=== PATIENT | female | born 1940 | race Caucasian/White ===

== ENCOUNTER 2020-09-17 13:11 | Inpatient (IN) | payer OTHER, MEDICAID, SELFPAY ==
[~2020-09-17] VITALS: Ht 152.4 cm; Wt 60.8 kg
[2020-09-17 13:11] VITALS: BP_SYST 113
--- NOTE | 2020-09-17 13:11 | NUR ---
Patient to ER bed 2 to gown for evaluation. Side rails up.
--- NOTE | 2020-09-17 13:20 | NUR ---
Patient presented to ER C/O hypotesion. Patient BIB ACLS to ER, A&Ox4, afebrile, right eye drainage, skin pink and warm, abdominal distension,denies pain , denies N/V/D. Per EMS, called for abdominal pain, on presentation PT was hypotensive. PT has HX of ascites & A-fib, liver cirrhosis.
--- NOTE | 2020-09-17 13:35 | NUR ---
ER Dr. Wheatley at bedside examining patient.
[2020-09-17] MEDS ORDERED: AMI200 PO (13:52)
[2020-09-17] MEDS ORDERED: NEPH PO (13:52)
[2020-09-17] MEDS ORDERED: BUDE6HFA INH (13:52)
[2020-09-17] MEDS ORDERED: OMEP20CA15 PO (13:52)
[2020-09-17] MEDS ORDERED: FOLI-43 PO (13:52)
[2020-09-17] MEDS ORDERED: MOM PO (13:52)
[2020-09-17] MEDS ORDERED: LEVA15HF5 INH (13:52)
[2020-09-17] MEDS ORDERED: ASCO500T20 PO (13:52)
[2020-09-17] MEDS ORDERED: CYAN100010 PO (13:52)
[2020-09-17] MEDS ORDERED: TIZA6CAP PO (13:52)
[2020-09-17] MEDS ORDERED: ACET325T PO (13:52)
[2020-09-17] MEDS ORDERED: DOCU-144 PO (13:52)
[2020-09-17] MEDS ORDERED: BISA-79 PO (13:52)
[2020-09-17] MEDS ORDERED: LEVO750T45 PO (13:52)
[2020-09-17] MEDS ORDERED: METO-442 PO (13:52)
[2020-09-17] MEDS ORDERED: DILT120C89 PO (13:52)
[2020-09-17 14:08] LABS: BASOPHILS # (AUTO) 0.1 K/uL (0.0-0.2); BASOPHILS % (AUTO) 0.8 % (0.0-2.0); EOSINOPHILS % (AUTO) 0.1 % (0.0-4.0); HEMATOCRIT 24.4 % (36-48); HEMOGLOBIN 7.9 g/dL (12.0-16.0); LYMPHOCYTES # (AUTO) 1.5 K/uL (1.0-5.5); LYMPHOCYTES % (AUTO) 14.1 % (20.5-51.5); MEAN CORPUSCULAR HEMOGLOBIN 28 pg (27-31); MEAN CORPUSCULAR HGB CONC 32 % (32-36); MEAN CORPUSCULAR VOLUME 87 fL (79.0-98.0); MONOCYTES # (AUTO) 0.8 K/uL (0.0-1.0); MONOCYTES % (AUTO) 7.4 % (1.7-9.3); NEUTROPHILS # (AUTO) 8.2 K/uL (1.8-7.7); NEUTROPHILS % (AUTO) 77.6 % (40.0-70.0); PLATELET COUNT (AUTO) 415 K/uL (130-430); RED CELL DISTRIBUTION WIDTH 15.5 % (9.0-15.0); WHITE BLOOD COUNT (AUTO) 10.6 K/uL (4.8-10.8)
--- NOTE | 2020-09-17 14:15 | NUR ---
# 16 FR In and Out catheter with use of sterile technique. Immediate return of ml urine noted. Urine sample collected and sent to lab. Pt tolerated procedure . Patient unable to toilet self.
[2020-09-17 14:23] LABS: ANION GAP 6 (5-15); CALCIUM 8.3 mg/dL (8.4-11.0); CHLORIDE 100 mmol/L (98-107); CREATININE 0.95 mg/dL (0.55-1.30); GLUCOSE 87 mg/dL (70-99); POTASSIUM 3.9 mmol/L (3.5-5.1); SODIUM SERUM 131 mmol/L (136-145); UREA NITROGEN, BLOOD 19 mg/dL (8-21)
--- NOTE | 2020-09-17 14:30 | NUR ---
Medication reconciliation completed with information provided by Referring Facility[]. Any prior medication reconciliation on file was reviewed and corrected.
[2020-09-17 14:34] LABS: INR 1.2 (0.8-1.2); PROTHROMBIN TIME 12.5 SECS (9.5-12.5)
[2020-09-17 14:41] LABS: ALANINE AMINOTRANSFERASE 8 U/L (12-78); ALBUMIN 2.1 g/dL (3.4-4.8); ASPARTATE AMINOTRANSFERASE 31 U/L (10-37); TOTAL BILIRUBIN 0.3 mg/dL (0.0-1.0)
[2020-09-17 14:47] LABS: BILIRUBIN,URINE NEGATIVE (NEGATIVE); BLOOD, URINE NEGATIVE (NEGATIVE); CLARITY/URINE CLEAR (CLEAR); COLOR,URINE YELLOW (YELLOW); GLUCOSE,URINE NEGATIVE (NEGATIVE); KETONES,URINE NEGATIVE (NEGATIVE); LEUKOCYTE ESTERASE ,URINE NEGATIVE (NEGATIVE); NITRITE, URINE POSITIVE (NEGATIVE); PH,URINE 5.5 (5.0-8.0); PROTEIN URINE NEGATIVE (NEGATIVE); UROBILINOGEN,URINE 0.2 (0.2-1.0)
[2020-09-17 15:09] LABS: BACTERIA,URINE MANY /HPF (None Seen); RBC,URINE 0-3 /HPF (0-3); WBC,URINE 0-3 /HPF (0-3)
--- NOTE | 2020-09-17 15:55 | NUR ---
ER at bedside examining patient.
--- NOTE | 2020-09-17 16:20 | NUR ---
Admit orders received from Dr. Martin, pt will go to tele. Called for bed, tt charge nurse, Manuel. Pt will go to 105B.
--- NOTE | 2020-09-17 16:35 | NUR ---
Patient will be admitted to care of DR LEE. Admitted to TELE unit. Will go to room 105B . Belongings list completed. Complete and up to date summary report printed. SBAR report to be given at bedside with opportunity for questions. Transfer to TELE via ACLS protocol. Licensed nurse present. IV present no signs or symptoms of infiltration.
--- NOTE | 2020-09-17 16:43 | NUR ---
Admission Note Received patient from ER with diagnosis of OVARIAN CA/ASCITES. Initial Plan of Care discussed-patient verbalized understanding. . Oriented to room, call light, pain management and safety.
[2020-09-17 16:53] VITALS: BP_SYST 93
[2020-09-17 17:00] VITALS: BP_SYST 86
--- NOTE | 2020-09-17 17:00 | NUR ---
Opening Note/Spoke with Physician patient brought to room 105A by BAR SUPERVISOR on media monitor, received bedside SBAR report from endorsing RN, patient placed on tele monitor, patient placed on 2L nasal cannula, no acute distress noted, patient is alert and oriented x4, spoke with Dr. Martin, informed him that patients current BP 86/58, HR 129, new orders received for fluid bolus, verified with read back, IV fluid infusing well, no redness or swelling noted to IV site, patient denies any dizziness, educated patient on use of call light and asked to call for assistance, patient verbalized understanding, call light in reach, bed in low and locked position, bed alarm on, room close to nurses station.
[2020-09-17] MEDS ORDERED: IPRATROPIUM BROM 0.5 MG/2.5 ML VIAL.NEB (ATROVENT) INH PRN (17:15)
[2020-09-17] MEDS ORDERED: ALBUTEROL SULFATE 0.083% 2.5 MG/3 ML VIAL.NEB INH PRN (17:15)
[2020-09-17] MEDS ORDERED: NACL 0.9% 1,000 ML IV ONE ×2 (17:15→22:15)
--- NOTE | 2020-09-17 17:15 | NUR ---
Snack patient requesting jello snack, provided patient with jello snack, patient eats independently, no acute distress noted.
[2020-09-17 17:50] VITALS: BP_SYST 103
--- NOTE | 2020-09-17 18:35 | NUR ---
to CT patient taken to CT on 2L nasal cannula and shake backboard notcher, accompanied by health records technology teacher and Michelle GARSIA.
--- NOTE | 2020-09-17 19:01 | NUR ---
back from CT patient brought back to room from CT scan via gurney, patient was on property assessment monitor and 2L nasal cannula and was accompanied by RN, patient resting in bed, respirations even and unlabored, no acute distress noted, bed in low and locked position, bed alarm on, call light in reach.
--- NOTE | 2020-09-17 19:04 | NUR ---
Closing Note bedside SBAR report given to receiving RN, patient resting in bed, respirations even and unlabored on 2L nasal cannula, no acute distress noted, room close to nurses station, educated patient on use of call light and asked to call for assistance, patient verbalized understanding, call light in reach, bed in low and locked position, bed alarm on, care endorsed to night time nanny RN.
[2020-09-17 19:30] VITALS: BP_SYST 83
--- NOTE | 2020-09-17 19:34 | NUR ---
Initial note: Received report from tati RN. Patient is awake in bed. No acute distress. Even and unlabored breathing on 2L NC. IV site is saline locked, patent and benign. Call light is with patient. Safety, fall precautions in place. Will continue with plan of care.
[2020-09-17] MEDS: IPRATROPIUM BROM 0.5 MG/2.5 ML VIAL.NEB (ATROVENT) INH SCH (20:14)
[2020-09-17] MEDS: ALBUTEROL SULFATE 0.083% 2.5 MG/3 ML VIAL.NEB INH SCH (20:14)
--- NOTE | 2020-09-17 20:28 | NUR ---
Low BP: Patient's SBP consistently in the 70's and 80's on both arms. Heart rate in the 120's, rhythm on the monitor switches between A-fib and sinus tachycardia. Patient denies dizziness or chest pain. Will notify MD of patient's condition.
--- NOTE | 2020-09-17 20:31 | NUR ---
Paged Dr. Martin (Dr. Elder, A copper flotation operator) for orders.
[2020-09-17 20:32] VITALS: BP_SYST 83
--- NOTE | 2020-09-17 20:59 | NUR ---
2nd page for Marisela Gee for orders for the patient.
--- NOTE | 2020-09-17 21:36 | NUR ---
3rd page for Marisela Gee for orders for the patient.
--- NOTE | 2020-09-17 22:03 | NUR ---
Dr. Marisela Elder: Dr. Marisela Elder called back at this time, spoke with him over phone to inform him regarding patient's SBP in the 70's and 80's and heart rate in the 120's with rhythm occasionally switching between sinus tachycardia and A-fib. Reported to MD patient's history and current status. New IV fluid orders and consultation orders received. Med rec done over phone with MD. Verified by read-back, RN to input.
--- NOTE | 2020-09-17 22:25 | NUR ---
SPOKE TO [facility] REGARDING PT FLU VACCINE STATUS ACCORDING TO THE [facility], THEY STATED THAT PT REFUSED FLU AND PNEUMOCOCCAL VACCINE.
[2020-09-17] MEDS ORDERED: MILK OF MAGNESIA 30 ML UDC PO PRN (22:30)
[2020-09-17] MEDS ORDERED: ACETAMINOPHEN 325 MG TABLET PO PRN (22:30)
--- NOTE | 2020-09-17 22:33 | NUR ---
CONSULTATION PAGED/CALLED Reason for Consultation: ASCITES Person Who was Notified: KRISS Consulting Physician: LUIS ENRIQUE Digital Traffic Coordinator Specialty: Ordering Physician: Marisela LAMBERT
--- NOTE | 2020-09-17 22:33 | NUR ---
CONSULTATION PAGED/CALLED Reason for Consultation: OVARIAC CANCER Person Who was Notified: GILBERT Consulting Physician: KATARINA Machine Heel Seat Fitter Specialty: Ordering Physician: Marisela LAMBERT
--- NOTE | 2020-09-17 22:34 | NUR ---
CONSULTATION PAGED/CALLED Reason for Consultation: UNCON. A FIB Person Who was Notified: GILBERT Consulting Physician: MALGORZATA Transformer Inspector Specialty: Ordering Physician: Mairsela LAMBERT
[2020-09-17] MEDS: D5/0.45 NS 1,000 ML IV SCH (23:06)
--- NOTE | 2020-09-17 23:25 | NUR ---
Dr. Marisela Elder: called back, reported to him patient's BP of 93/52 after 1 L NS bolus. MD ordered to continue monitoring.
[2020-09-18] VITALS: BP_SYST 93
--- NOTE | 2020-09-18 01:33 | NUR ---
Rounds: Patient is resting comfortably in bed. No acute distress. Breathing is even and unlabored on 2 L NC. IV fluids infusing well. Call light is with patient. Will continue to monitor.
[2020-09-18 04:24] VITALS: BP_SYST 128
--- NOTE | 2020-09-18 04:32 | NUR ---
Rounds: Patient is asleep in bed, no acute distress. Even and unlabored breathing. Tolerating 2L NC. IV fluids infusing as ordered, no infiltration. BP taken at this time is 128/56. Call light is with patient. Will continue to monitor.
--- NOTE | 2020-09-18 06:34 | NUR ---
Closing note: Patient is resting in bed, no acute distress. Even and unlabored breathing on 2L NC. IV fluids infusing well to right wrist IV site. All needs met. Safety, fall precautions observed. Will endorse care to dayshift RN.
--- NOTE | 2020-09-18 06:45 | NUR ---
Flu vaccination status: Patient was asked at this time if she wanted flu shot, however she is unsure if she's received it. Patient's daughter Reyna per face sheet was contacted over the phone by charge nurse. Per charge nurse, Reyna is unsure whether flu shot has been given, though may have been given during a visit at patient's primary doctor's office. Reyna will follow up with the doctor's office once they are open.
[2020-09-18] MEDS: ALBUTEROL SULFATE 0.083% 2.5 MG/3 ML VIAL.NEB INH SCH ×4 (07:10→20:34)
[2020-09-18] MEDS: IPRATROPIUM BROM 0.5 MG/2.5 ML VIAL.NEB (ATROVENT) INH SCH ×4 (07:11→20:34)
--- NOTE | 2020-09-18 07:12 | NUR ---
Dr. Martin: Received a phone call at this time from Dr. Martin, who ordered to cancel the consults for Dr. Ritter, Dr. Marcos, and Dr. Schwartz. Order verified by read-back. This information was relayed to dat Dorsey, who will call and notify the exchanges of each physician whose consults were canceled.
--- NOTE | 2020-09-18 07:20 | NUR ---
Opening Note patient alert and awake, no signs of distress noted, patient on nasal cannula oxygen 2 liters, bed locked and at low position, call light within reach, fall and aspiration precautions put in place.
[2020-09-18 08:20] VITALS: BP_SYST 70
[2020-09-18] MEDS: D5/0.45 NS 1,000 ML IV SCH ×2 (08:36→21:23)
[2020-09-18] MEDS: levoFLOXacin 250 MG TABLET PO SCH (08:36)
[2020-09-18] MEDS: BISACODYL 5 MG TABLET.DR (DULCOLAX) PO SCH (08:37)
[2020-09-18] MEDS: DOCUSATE SODIUM 100 MG CAPSULE PO SCH ×2 (08:38→21:23)
[2020-09-18] MEDS: PANTOPRAZOLE SODIUM 40 MG TAB PO SCH (08:38)
[2020-09-18] MEDS: NEPHROVITE, (FOLIC ACID/VITAMIN B COMP W-C 1 TAB) PO SCH (08:38)
[2020-09-18] MEDS: ASCORBIC ACID 500 MG TABLET PO SCH (08:39)
[2020-09-18] MEDS: CYANOCOBALAMIN 1000 mCg TABLET PO SCH (08:39)
--- NOTE | 2020-09-18 08:47 | NUR ---
MOLD YARD CRANE OPERATOR, DR MCGARRY WAS CALLED RE: LOW BP 70/50. SPOKE TO JOSE DAVID.
[2020-09-18] MEDS ORDERED: FOLIC ACID 1 MG TABLET PO SCH (09:00)
[2020-09-18] MEDS ORDERED: NS 250 ML IV ONE ×2 (09:00)
[2020-09-18] MEDS ORDERED: OMEPRAZOLE Non-Formulary 20 MG CAPSULE.DR PO SCH (09:00)
--- NOTE | 2020-09-18 09:00 | NUR ---
NEUROSURGEON CONSULT DR COLLINS WAS CALLED ON HIS CELL RE: F/U CONSULT NOT SEEN FOR 4 DAYS. LEFT A VOICE MESSAGE. Addendum: 09/18/20 at 0910 by Sunita Esparza [place]/ WRONG PT.
--- NOTE | 2020-09-18 09:06 | NUR ---
Nutrition Update Sarbjit Scale 17 noted. Pt admitted for ovarian CA, ascites. Diet: full liquid BMI: 26.4 kg/m2 RD to follow per nutrition care standards.
[2020-09-18 09:13] LABS: BASOPHILS % (AUTO) 0.2 % (0.0-2.0); HEMATOCRIT 22.5 % (36-48); HEMOGLOBIN 7.1 g/dL (12.0-16.0); LYMPHOCYTES # (AUTO) 1.1 K/uL (1.0-5.5); MEAN CORPUSCULAR HEMOGLOBIN 28 pg (27-31); MEAN CORPUSCULAR HGB CONC 32 % (32-36); MEAN CORPUSCULAR VOLUME 88 fL (79.0-98.0); MONOCYTES # (AUTO) 0.8 K/uL (0.0-1.0); MONOCYTES % (AUTO) 7.7 % (1.7-9.3); NEUTROPHILS % (AUTO) 81.1 % (40.0-70.0); PLATELET COUNT (AUTO) 379 K/uL (130-430); RED BLOOD CELL COUNT(AUTO) 2.55 MIL/uL (4.2-6.2); RED CELL DISTRIBUTION WIDTH 15.6 % (9.0-15.0); WHITE BLOOD COUNT (AUTO) 9.9 K/uL (4.8-10.8)
[2020-09-18] MEDS: ALBUMIN HUMAN 25% 50 ML IV SCH ×3 (09:26→17:04)
--- NOTE | 2020-09-18 09:26 | NUR ---
RN Rounds/Medication patient in bed resting, administered medication ordered per MD, patient tolerated well, no other needs at this time, safety precautions maintained.
[2020-09-18 09:32] LABS: ANION GAP 8 (5-15); CALCIUM 7.7 mg/dL (8.4-11.0); CHLORIDE 103 mmol/L (98-107); CREATININE 0.85 mg/dL (0.55-1.30); GLUCOSE 129 mg/dL (70-99); POTASSIUM 3.6 mmol/L (3.5-5.1); SODIUM SERUM 133 mmol/L (136-145); UREA NITROGEN, BLOOD 15 mg/dL (8-21)
[2020-09-18 09:46] LABS: ALANINE AMINOTRANSFERASE 13 U/L (12-78); ALBUMIN 1.7 g/dL (3.4-4.8); ASPARTATE AMINOTRANSFERASE 26 U/L (10-37); LIPASE 75 U/L (73-393); TOTAL BILIRUBIN 0.2 mg/dL (0.0-1.0)
[2020-09-18 10:23] LABS: CHOLESTEROL 105 mg/dL (<200); HDL CHOLESTEROL 34 mg/dL (>55); TRIGLYCERIDES 108 mg/dL (30-150)
[2020-09-18 10:24] LABS: LDL CHOLESTEROL 54 mg/dL (<100)
--- NOTE | 2020-09-18 10:46 | NUR ---
PER MD DR MCGARRY, I WAS ORDERED TO GET MEDICAL RECORDS FROM [facility]. SPOKE TO JEWELS FROM RELEASE OF MEDICAL INFO UNIT AND FAXED THE PT'S CONSENT.
[2020-09-18 11:26] VITALS: BP_SYST 101
--- NOTE | 2020-09-18 13:25 | NUR ---
Dietitian Recommendations * Recommend continuing full liquid diet * Encourage increase PO intakes LP, RD Please refer to Nutrition Assessment for details. Addendum: 09/18/20 at [address] Amended: Links added. Addendum: 09/18/20 at [address] CORRECTION: Dietitian Recommendations * Recommend full liquid, vegetarian diet * Encourage increase PO intakes LP, RD
--- NOTE | 2020-09-18 13:45 | NUR ---
RN Rounds patient in bed awake and no signs of distress noted, will continue to monitor patient for any changes, safety precautions maintained.
--- NOTE | 2020-09-18 15:22 | NUR ---
RN Rounds patient resting in bed, no signs of distress noted, no other needs at this time, safety measures maintained.
[2020-09-18 15:35] VITALS: BP_SYST 91
--- NOTE | 2020-09-18 17:05 | NUR ---
Pasha christianson per exchange . Spoke to software sales representative Leslie.
--- NOTE | 2020-09-18 17:39 | NUR ---
RN Rounds Dr. Burger at patient bedside.
--- NOTE | 2020-09-18 18:42 | NUR ---
Closing Note patient alert and awake, no signs of distress noted, patient on nasal cannula oxygen 2 liters, bed locked and at low position, call light within reach, contact fall and aspiration precautions maintained through out shift, patient care endorse to warehouse supervisor 3rd shift nurse.
--- NOTE | 2020-09-18 19:40 | NUR ---
Initial note: Received report from dayslouisft RN. Patient is awake in bed. No acute distress. Even and unlabored breathing on 2L NC. IV fluids infusing well, no infiltration. Call light is with patient. Safety, fall, contact iso precautions in place. Will continue with plan of care.
[2020-09-18 20:14] VITALS: BP_SYST 93
[2020-09-19] VITALS (8 sets, daily range): BP systolic 86–120
--- NOTE | 2020-09-19 00:43 | NUR ---
Rounds: Patient is resting in bed. No acute distress. Even and unlabored breathing on 2L NC. IV fluids infusing well. Call light with patient. Will continue to monitor.
--- NOTE | 2020-09-19 02:45 | NUR ---
IV RE-INSERTION: Existing IV site was leaking. Restarted on left forearm, 20 gauge. Successful after 1 attempt. Resumed current IVF of D5 1/2 NS and regulated @ 100 ML per hour. Will observe for any signs of infiltration.
--- NOTE | 2020-09-19 04:34 | NUR ---
Rounds: Patient is asleep in bed, no acute distress. Even and unlabored breathing. Tolerating 2L NC. IV fluids infusing as ordered, no infiltration. Call light is with patient. Will continue to monitor.
[2020-09-19] MEDS: D5/0.45 NS 1,000 ML IV SCH ×3 (05:23→23:40)
--- NOTE | 2020-09-19 06:43 | NUR ---
Closing note: Patient is asleep in bed. No acute distress. Even, non-labored breathing on 2LNC. IV site is patent and intact, no infiltration. All needs met. Call light is with patient. Contact iso, safety, and fall precautions observed. Will endorse care to dayshift RN.
[2020-09-19 06:49] LABS: ALANINE AMINOTRANSFERASE 7 U/L (12-78); ALBUMIN 1.9 g/dL (3.4-4.8); ANION GAP 7 (5-15); ASPARTATE AMINOTRANSFERASE 18 U/L (10-37); CALCIUM 7.5 mg/dL (8.4-11.0); CHLORIDE 103 mmol/L (98-107); GLUCOSE 117 mg/dL (70-99); POTASSIUM 3.9 mmol/L (3.5-5.1); SODIUM SERUM 132 mmol/L (136-145); TOTAL BILIRUBIN 0.2 mg/dL (0.0-1.0); UREA NITROGEN, BLOOD 11 mg/dL (8-21)
[2020-09-19] MEDS: IPRATROPIUM BROM 0.5 MG/2.5 ML VIAL.NEB (ATROVENT) INH SCH ×4 (07:14→20:04)
[2020-09-19] MEDS: ALBUTEROL SULFATE 0.083% 2.5 MG/3 ML VIAL.NEB INH SCH ×4 (07:14→20:05)
[2020-09-19 07:16] LABS: BASOPHILS % (AUTO) 0.1 % (0.0-2.0); EOSINOPHILS % (AUTO) 0.1 % (0.0-4.0); HEMOGLOBIN 7.1 g/dL (12.0-16.0); LYMPHOCYTES # (AUTO) 1.1 K/uL (1.0-5.5); LYMPHOCYTES % (AUTO) 12.7 % (20.5-51.5); MEAN CORPUSCULAR HEMOGLOBIN 28 pg (27-31); MEAN CORPUSCULAR HGB CONC 32 % (32-36); MONOCYTES # (AUTO) 0.6 K/uL (0.0-1.0); MONOCYTES % (AUTO) 7.6 % (1.7-9.3); NEUTROPHILS # (AUTO) 6.6 K/uL (1.8-7.7); NEUTROPHILS % (AUTO) 79.5 % (40.0-70.0); PLATELET COUNT (AUTO) 333 K/uL (130-430); RED BLOOD CELL COUNT(AUTO) 2.55 MIL/uL (4.2-6.2); RED CELL DISTRIBUTION WIDTH 15.9 % (9.0-15.0); WHITE BLOOD COUNT (AUTO) 8.3 K/uL (4.8-10.8)
[2020-09-19 07:34] LABS: MEAN CORPUSCULAR VOLUME 87 fL (79.0-98.0)
--- NOTE | 2020-09-19 08:00 | NUR ---
Opening note patient is a/ox4, denies pain, heart rate 140 at this time, patient had breathing treatment, on 3L via nasal cannula at this time, tolerating well, blood pressure 96/49, educated patient on plan of care and call light system, she verbalized understanding, bed in lowest position, three side rails up, bed alarm on, bed close to nursing station, fall, aspiration and isolation precautions in place.
[2020-09-19] MEDS: NEPHROVITE, (FOLIC ACID/VITAMIN B COMP W-C 1 TAB) PO SCH (08:31)
[2020-09-19] MEDS: levoFLOXacin 250 MG TABLET PO SCH (08:31)
[2020-09-19] MEDS: ASCORBIC ACID 500 MG TABLET PO SCH (08:31)
[2020-09-19] MEDS: PANTOPRAZOLE SODIUM 40 MG TAB PO SCH (08:31)
[2020-09-19] MEDS: CYANOCOBALAMIN 1000 mCg TABLET PO SCH (08:31)
[2020-09-19] MEDS: BISACODYL 5 MG TABLET.DR (DULCOLAX) PO SCH (08:32)
[2020-09-19] MEDS: DOCUSATE SODIUM 100 MG CAPSULE PO SCH ×2 (08:32→20:31)
[2020-09-19] MEDS: MUPIROCIN 2% TOPICAL OINTMENT 22 GM NS SCH ×2 (08:32→20:35)
--- NOTE | 2020-09-19 08:35 | NUR ---
Medication patient resting in bed, awake, denies pain, states she has some shortness of breath, but is doing okay so far, patient did receive breathing treatment this morning, educated patient on scheduled medications uses and potential side effects, she verbalized understanding, crushed medications and administered with applesauce, patient tolerated well, IV line is patent and infusing well, continuing to monitor patient, bed in lowest position, three side rails up, bed alarm on, bed close to nursing station, call light within reach, fall, aspiration and isolation precautions in place.
--- NOTE | 2020-09-19 09:40 | NUR ---
Dr. Herring rounds informed MD of heart rate increase this morning, Dr. Herring assessed patient, patient is not in distress, no further orders from MD at this time.
[2020-09-19] MEDS ORDERED: MIDODRINE HCL 5 MG TABLET (PROAMATINE) PO ONE (10:15)
[2020-09-19] MEDS ORDERED: METOPROLOL TARTRATE 25 MG TABLET PO ONE (10:15)
--- NOTE | 2020-09-19 10:36 | NUR ---
RN rounds/Medication patient resting in bed, awake, denies pain, no signs of distress, educated patient on new medications uses and potential side effects, she verbalized understanding and tolerated well, cleaned, turned and repositioned patient with GLOVE PAIRER, patient tolerated well, IV line is patent and infusing well, continuing to monitor, bed in lowest position, three side rails up, call light within reach, bed alarm on, bed close to nursing station, fall, aspiration and isolation precautions in place.
--- NOTE | 2020-09-19 12:24 | NUR ---
Dr. Martin rounds assessed patient and spoke with the family over the phone, discussed Hospice care with the family, orders received for Hospice evaluation with Deanne.
--- NOTE | 2020-09-19 12:30 | NUR ---
RN rounds patient resting in bed, awake, denies pain, no signs of distress, IV line is patent and infusing well, encouraging patient to eat lunch, she is trying now, aspiration precautions in place, patient is on 3L via nasal cannula, tolerating well, continuing to monitor, bed in lowest position, three side rails up, bed alarm on, bed close to nursing station, fall and isolation precautions in place.
--- NOTE | 2020-09-19 13:05 | NUR ---
SS notes: JANAY received order for Hospice Eval; faxed to [facility] (f:[phone]). Addendum: 09/19/20 at 1619 by Hetal GUSTAFSON Discharge to "home with hospice" faxed.
--- NOTE | 2020-09-19 14:26 | NUR ---
RN rounds patient resting in bed, awake, denies pain, no signs of distress, cleaned, turned and repositioned patient with CLINICAL QUALITY ASSURANCE SPECIALIST, patient tolerated well, IV line is patent and infusing well, patient is still on 3L via nasal cannula, tolerating well, continuing to monitor patient, bed in lowest position, three side rails up, bed alarm on, bed close to nursing station, fall, aspiration and isolation precautions in place.
[2020-09-19] MEDS: MIDODRINE HCL 5 MG TABLET (PROAMATINE) PO SCH ×2 (15:58→20:31)
--- NOTE | 2020-09-19 16:05 | NUR ---
RN rounds patient resting in bed, eyes closed, breathing is even and unlabored, no signs of distress, easy to wake, educated patient on scheduled medication uses and potential side effects, she verbalized understanding and tolerated well, IV line is patent and infusing well, call light placed within reach, bed in lowest position, three side rails up, bed alarm on, bed close to nursing station, fall, aspiration and isolation precautions in place.
--- NOTE | 2020-09-19 18:33 | NUR ---
Closing note patient resting in bed, eyes closed, breathing is even and unlabored, no signs of distress, IV line is patent and infusing well, all needs met, will endorse report to NOC shift nurse, bed in lowest position, three side rails up, bed alarm on, bed close to nursing station, fall, aspiration and isolation precautions in place.
--- NOTE | 2020-09-19 18:44 | NUR ---
A flutter patient had about 2.5 minutes of A Flutter, patient was not in distress, vital signs were taken, patient converted back to Sinus Tachycardia on the monitor, continuing to monitor, will endorse this episode to NOC shift nurse as well for further monitoring.
--- NOTE | 2020-09-19 19:50 | NUR ---
INITIAL NOTE AT INITIAL ASSESSMENT, PATIENT IS RESTING IN BED, STABLE, NO SIGNS OF RESPIRATORY DISTRESS. PATIENT VERBALIZES NO PAIN. PLAN OF CARE FOR THE EVENING IS COMMUNICATED WITH THE PATIENT. PATIENT DEMONSTRATES CORRECT USAGE OF CALL LIGHT AT THIS TIME. BED IS LOCKED, ALARMED, AND AT THE LOWEST LEVEL. FALL SAFETY EDUCATION PROVIDED. FALL, SAFETY, ISOLATION, ASPIRATION, AND RESPIRATORY PRECAUTIONS WILL BE TAKEN THROUGHOUT THE SHIFT.
[2020-09-19] MEDS: METOPROLOL TARTRATE 25 MG TABLET PO SCH (20:32)
--- NOTE | 2020-09-19 20:55 | NUR ---
MED PASS NOTE SCHEDULED MEDICATIONS GIVEN AT THIS TIME CRUSHED WITH APPLE SAUCE, PATIENT TOLERATED WELL. CALL LIGHT IS PLACED WITHIN REACH. BED IS LOCKED, ALARMED, AND AT THE LOWEST LEVEL.
--- NOTE | 2020-09-19 22:20 | NUR ---
HYGIENE CARE NOTE HYGIENE CARE IS PROVIDED AT THIS TIME, FRESH LINENS PROVIDED, AND PATIENT IS REPOSITIONED FOR COMFORT. PATIENT TOLERATED WELL. CALL LIGHT PLACED WITHIN REACH. BED IS LOCKED, ALARMED, AND AT THE LOWEST LEVEL.
[2020-09-20] VITALS (23 sets, daily range): BP systolic 69–105
--- NOTE | 2020-09-20 00:15 | NUR ---
LOW BLOOD PRESSURE NOTE PATIENT'S BLOOD PRESSURE FOR MIDNIGHT ASSESSMENT IS LOW (AVERAGING 74/43), WILL PAGE MD IF ATTEMPTS TO INCREASE BLOOD PRESSURE BY REPOSITIONING PATIENT IS UNSUCCESSFUL. AT THIS TIME, PATIENT IS STILL ALERT AND ORIENTED, SHE STATES SHE IS COMFORTABLE, AND IS ASYMPTOMATIC OF HYPOTENSION. SHE IS REPOSITIONED, NO SIGNS OF RESPIRATORY DISTRESS. CALL LIGHT IS WITHIN REACH. BED IS LOCKED, ALARMED, AND AT THE LOWEST LEVEL.
--- NOTE | 2020-09-20 00:40 | NUR ---
PAGED PAGED DOCTOR MCGARRY AND DOCTOR CARDENAS IS PROCUREMENT AGENT
--- NOTE | 2020-09-20 01:01 | NUR ---
2ND PAGE PAGED DOCTOR THERESA AGAIN FOR ORDERS
--- NOTE | 2020-09-20 01:06 | NUR ---
COMMUNICATION WITH DR. THERESA CARDENAS (ELECTROPHYSIOLOGY TECHNICIAN FOR DR. MCGARRY) HAS PAGED BACK AT THIS TIME- IT WAS COMMUNICATED THAT PATIENT'S BLOOD PRESSURE REMAINS AROUND 74/41 DESPITE REPOSITIONING EFFORTS. IT WAS REPORTED TO MD THAT PATIENT IS STILL ALERT AND STATES SHE IS COMFORTABLE; SHE IS NOT DISPLAYING ANY SYMPTOMS OF HYPOTENSION. MD IS ALSO MADE AWARE THAT PATIENT IS PENDING HOSPICE EVALUATION AND POSSIBLY WANTS TO BE DNR. DR. CARDENAS HAS ORDERED ONE TIME DOSE BOLUS OF 500 ML NS, AND HAS REQUESTED WE ONLY PAGE HIM AGAIN IF PATIENT'S SBP<90 ON REASSESSMENT AFTER NS BOLUS GIVEN. ORDERS READ BACK, VERIFIED, AND WILL BE GIVEN IMMEDIATELY. CHARGE NURSE AWARE.
[2020-09-20] MEDS ORDERED: NS 500 ML IV ONE ×2 (01:15→02:45)
--- NOTE | 2020-09-20 02:05 | NUR ---
PAGED PAGED DOCTOR THERESA HE TOLD US TO CALL BACK
--- NOTE | 2020-09-20 02:32 | NUR ---
COMMUNICATION WITH DR. THERESA CARDENAS (BALE OPENER FOR DR. MCGARRY) HAS PAGED BACK AT THIS TIME- IT WAS COMMUNICATED THAT PATIENT'S BLOOD PRESSURE REMAINS AROUND 74/41 DESPITE 500 ML NS BOLUS GIVEN AND REPOSITIONING EFFORTS. IT WAS REPORTED TO MD THAT PATIENT IS NOW LETHARGIC COMPARED TO BASELINE TONIGHT. DR. CARDENAS HAS ONE MORE BOLUS OF 500 ML NS, AND HAS REQUESTED WE ONLY PAGE HIM AGAIN IF PATIENT'S SBP<90 ON REASSESSMENT AFTER NS BOLUS GIVEN. ORDERS READ BACK, VERIFIED, AND WILL BE GIVEN IMMEDIATELY. CHARGE NURSE AWARE.
[2020-09-20] MEDS: ALBUTEROL SULFATE 0.083% 2.5 MG/3 ML VIAL.NEB INH SCH ×7 (02:48→23:23)
[2020-09-20] MEDS: IPRATROPIUM BROM 0.5 MG/2.5 ML VIAL.NEB (ATROVENT) INH SCH ×7 (02:48→23:23)
--- NOTE | 2020-09-20 03:42 | NUR ---
Paged Dr. Elder Flakito s/w Shira
[2020-09-20] MEDS ORDERED: NACL 0.9% 1,000 ML IV ONE ×2 (04:00→09:45)
--- NOTE | 2020-09-20 04:01 | NUR ---
COMMUNICATION WITH Benigno PRUITT DR., A. (BINDING BENCH WORKER FOR DR. LEE) HAS PAGED BACK AT THIS TIME- IT WAS COMMUNICATED THAT PATIENT'S SBP REMAINS IN THE LOW 70'S DESPITE TOTAL OF 1,000 ML NS BOLUS ORDERED BY DR. CARDENAS. IT WAS ALSO COMMUNICATED THAT PATIENT IS PENDING HOSPICE EVALUATION, AND MAY WANT TO BE DNR. Marisela PRUITT HAS GIVEN ORDERS TO FOR AN ADDITIONAL 1,000 ML NS BOLUS TO BE GIVEN AT THIS TIME, AND TO PAGE HIM BACK IF PATIENT'S SBP> 90 AFTER BOLUS IS GIVEN. ORDERS READ BACK, VERIFIED, AND WILL BE GIVEN IMMEDIATELY. CHARGE NURSE AND INSIDE PARTS SALES ARE MADE AWARE.
--- NOTE | 2020-09-20 04:20 | NUR ---
MEJÍA CATHETER PLACEMENT PER BLADDER SCANNER, PATIENT IS RETAINING 375 ML URINE, Marisela PRUITT HAS ORDERED MEJÍA CATHETER PLACEMENT. MEJÍA CATHETER IS PLACED AT THIS TIME, 10 ML IS PLACED IN BALLOON TO SECURE MEJÍA PLACEMENT. PATIENT TOLERATED WELL. URINE OUTPUT IS NOTED. MEJÍA IS SECURED AND PLACED TO DRAIN PER GRAVITY. HYGIENE CARE IS ALSO PROVIDED AT THIS TIME, FRESH LINENS PROVIDED, AND PATIENT IS REPOSITIONED FOR COMFORT. PATIENT TOLERATED WELL. CALL LIGHT PLACED WITHIN REACH. BED IS LOCKED, ALARMED, AND AT THE LOWEST LEVEL.
--- NOTE | 2020-09-20 05:25 | NUR ---
COMMUNICATION WITH Benigno PRUITT: HYPOTENSION Marisela PRUITT (SCREW DOWN FOR DR. LEE) HAS PAGED BACK AT THIS TIME- IT WAS COMMUNICATED THAT PATIENT'S SBP REMAINS IN THE LOW 70'S DESPITE ANOTHER 1,000 ML NS BOLUS GIVEN AND REPOSITIONING EFFORTS. PATIENT IS CURRENTLY SLEEPY BY AROUSABLE. Marisela PRUITT HAS GIVEN ORDERS TO TRANSFER TO ICU WITH LEVOPHED-DOSING BY PHARMACY. ORDERS READ BACK, VERIFIED, AND WILL BE GIVEN IMMEDIATELY. CHARGE NURSE AND ASSAULT AMPHIBIOUS VEHICLE OFFICER ARE MADE AWARE.
--- NOTE | 2020-09-20 05:44 | NUR ---
TRANSFER OF CARE PER Benigno PRUITT ORDERS, PATIENT CARE IS NOW TRANSFERRED TO ICU. BEDSIDE REPORT GIVEN TO MD ALLERGY IMMUNOLOGYMILTON AT THIS TIME. NO SOB NOTED THROUGHOUT THEN NIGHT. PATIENT IS CURRENTLY STILL AWAKE AND ALERT. BED IS LOCKED, ALARMED, AND AT THE LOWEST LEVEL. FALL, SAFETY, ASPIRATION, ISOLATION AND RESPIRATORY PRECAUTIONS HAVE BEEN TAKEN THROUGHOUT THE SHIFT.
[2020-09-20] MEDS ORDERED: NOREPINEPHRINE BITARTRATE 4 MG in D5W 246 ML IV PRN (05:45)
[2020-09-20] MEDS: NOREPINEPHRINE BITARTRATE 4 MG in D5W 246 ML IV PRN ×2 (06:05→18:12)
--- NOTE | 2020-09-20 06:05 | NUR ---
OPENING NOTE SBAR REPORT RECEIVED FROM TJ GARSIA. CARE ASSUMED.PT TRANSFERRED TO ICU FOR HYPOTENSION FROM MED SURG. PT LAYING IN BED. PT ANO X4. PT ON 3L NC. O2 SATURATION 99%. PT HAS 20G IV TO LEFT FOREARM RUNNING D5/ 1/2NS @ 100 ML/HR. RADIAL AND PEDAL PULSES PRESENT. EDEMA NOTED TO BILATERAL LOWER EXTREMITIES. ABDOMEN DISTENDED AND FIRM. BOWEL SOUNDS ACTIVE. PT HAS MEJÍA CATHETER FLOWING TO GRAVITY. URINE YELLOW AND CLEAR. SKIN INTACT. BLANCHABLE SACRAL REDNESS PRESENT AND RIGHT HIP ECCHYMOSIS PRESENT. BED LOCKED IN LOWEST POSITION. SAFETY PRECAUTIONS IN PLACE. CALL LIGHT WITHIN REACH. WILL CONTINUE TO MONITOR.
[2020-09-20] MEDS ORDERED: NOREPINEPHRINE 4 MG/4 ML VIAL IV ONE (06:13)
[2020-09-20 07:14] LABS: BILIRUBIN,URINE NEGATIVE (NEGATIVE); COLOR,URINE YELLOW (YELLOW); GLUCOSE,URINE NEGATIVE (NEGATIVE); KETONES,URINE NEGATIVE (NEGATIVE); LEUKOCYTE ESTERASE ,URINE 3+ (NEGATIVE); NITRITE, URINE POSITIVE (NEGATIVE); PH,URINE 6.5 (5.0-8.0); PROTEIN URINE NEGATIVE (NEGATIVE); UROBILINOGEN,URINE 0.2 (0.2-1.0)
[2020-09-20 07:22] LABS: BLOOD, URINE TRACE (NEGATIVE)
--- NOTE | 2020-09-20 07:30 | NUR ---
Opening Notes Pt received from night RN using SBAR. Pt laying in bed with eyes closed, easily awaken to verbal stimuli. Bed in lowest position with the break on. Pt reoriented to call light. Swift draining yellow urine to gravity. No complaints of pain or distress at this time, will continue to monitor.
--- NOTE | 2020-09-20 07:33 | NUR ---
CLOSING NOTE PT LAYING IN BED. PT SLEEPING. NO SIGNS OR SYMPTOMS OF DISTRESS NOTED. SBAR REPORT GIVEN TO OUMOU GARSIA. CARE ENDORSED.
[2020-09-20] MEDS: MUPIROCIN 2% TOPICAL OINTMENT 22 GM NS SCH ×3 (09:00→22:17)
[2020-09-20] MEDS: METOPROLOL TARTRATE 25 MG TABLET PO SCH ×2 (09:00→22:05)
[2020-09-20 09:02] LABS: BACTERIA,URINE MODERATE /HPF (None Seen); CLARITY/URINE HAZY (CLEAR); MUCUS,URINE 1+ /LPF (None Seen); WBC,URINE 80-100 /HPF (0-3)
--- NOTE | 2020-09-20 09:06 | NUR ---
MD Dr. Martin at bedside with pt.
--- NOTE | 2020-09-20 09:17 | NUR ---
Hospice [facility]ja Received a call from Alesha with [facility], p [phone] f [phone]. She will be meeting with patient's family today to determine if they will sign consents for patient to start on hospice. She will call with follow up. Addendum: 09/20/20 at 1544 by Claudette Burnham LCSW Deanne has had a phone conference with patient's daughters. They are in the process of signing consents. The plan is for patient to go to daughter, Amy, home in [facility] with [facility] tomorrow. Discussed with Karis GARSIA. Also discussed that patient's chart shows full code status.
--- NOTE | 2020-09-20 09:19 | NUR ---
Family Spoke to Oksana Schroeder pt's daughter and provided update.
--- NOTE | 2020-09-20 09:40 | NUR ---
Breakfast Pt assisted with breakfast tray, pt tolerated well.
[2020-09-20] MEDS: MIDODRINE HCL 5 MG TABLET (PROAMATINE) PO SCH ×3 (09:41→22:02)
[2020-09-20] MEDS: levoFLOXacin 250 MG TABLET PO SCH (09:42)
[2020-09-20] MEDS: CYANOCOBALAMIN 1000 mCg TABLET PO SCH (09:42)
[2020-09-20] MEDS: PANTOPRAZOLE SODIUM 40 MG TAB PO SCH (09:42)
[2020-09-20] MEDS: BISACODYL 5 MG TABLET.DR (DULCOLAX) PO SCH (09:43)
[2020-09-20] MEDS: NEPHROVITE, (FOLIC ACID/VITAMIN B COMP W-C 1 TAB) PO SCH (09:43)
[2020-09-20] MEDS: DOCUSATE SODIUM 100 MG CAPSULE PO SCH ×2 (09:43→21:00)
[2020-09-20] MEDS: ASCORBIC ACID 500 MG TABLET PO SCH (09:43)
[2020-09-20] MEDS: D5/0.45 NS 1,000 ML IV SCH ×2 (09:44→20:15)
[2020-09-20] MEDS: PIPERACILLIN/TAZO 2.25G/DEX-IS 50 ML IV SCH ×3 (10:00→22:03)
--- NOTE | 2020-09-20 10:01 | NUR ---
MD Dr. Herring at bedside with pt.
--- NOTE | 2020-09-20 12:12 | NUR ---
Family Transferred phone call from pts daughter Oksana into pt's room. Pt was able to speak to daughter.
--- NOTE | 2020-09-20 13:42 | NUR ---
Paged Dr. Bentley regarding pts HR, spoke to Alma with the exchange awaiting call back.
[2020-09-20] MEDS ORDERED: DIGOXIN 0.125 MG TABLET PO ONE (14:30)
--- NOTE | 2020-09-20 19:05 | NUR ---
OPENING NOTE SBAR REPORT RECEIVED FROM OUMOU GARSIA. CARE ASSUMED. PT LAYING IN BED. PT ANO X4. PT ON 3L NC. O2 SATURATION 99%. PT HAS 20G IV TO LEFT FOREARM RUNNING D5/ 1/2NS @ 100 ML/HR AND LEVOPHED @ 0.1 MCG/KG/MIN. RADIAL AND PEDAL PULSES PRESENT. EDEMA NOTED TO BILATERAL LOWER EXTREMITIES. ABDOMEN DISTENDED AND FIRM. BOWEL SOUNDS ACTIVE. PT HAS MEJÍA CATHETER FLOWING TO GRAVITY. URINE YELLOW AND CLEAR. SKIN INTACT. BLANCHABLE SACRAL REDNESS PRESENT AND RIGHT HIP ECCHYMOSIS PRESENT. BED LOCKED IN LOWEST POSITION. SAFETY PRECAUTIONS IN PLACE. CALL LIGHT WITHIN REACH. WILL CONTINUE TO MONITOR.
--- NOTE | 2020-09-20 19:23 | NUR ---
Closing Notes Pt endorsed to night RN using SBAR
[2020-09-21] VITALS (23 sets, daily range): BP systolic 83–117
[2020-09-21] MEDS: IPRATROPIUM BROM 0.5 MG/2.5 ML VIAL.NEB (ATROVENT) INH SCH ×6 (03:00→23:27)
[2020-09-21] MEDS: ALBUTEROL SULFATE 0.083% 2.5 MG/3 ML VIAL.NEB INH SCH ×6 (03:00→23:27)
[2020-09-21] MEDS: NOREPINEPHRINE BITARTRATE 4 MG in D5W 246 ML IV PRN ×3 (03:34→19:06)
[2020-09-21] MEDS: PIPERACILLIN/TAZO 2.25G/DEX-IS 50 ML IV SCH ×4 (04:00→21:10)
[2020-09-21] MEDS: D5/0.45 NS 1,000 ML IV SCH ×3 (06:15→23:42)
--- NOTE | 2020-09-21 07:00 | NUR ---
Opening Note Received report from DARREN GARSIA.
[2020-09-21 07:01] LABS: BASOPHILS % (AUTO) 0.4 % (0.0-2.0); EOSINOPHILS % (AUTO) 0.3 % (0.0-4.0); HEMATOCRIT 24.6 % (36-48); HEMOGLOBIN 7.7 g/dL (12.0-16.0); LYMPHOCYTES # (AUTO) 1.5 K/uL (1.0-5.5); LYMPHOCYTES % (AUTO) 13.7 % (20.5-51.5); MEAN CORPUSCULAR HEMOGLOBIN 27 pg (27-31); MEAN CORPUSCULAR HGB CONC 31 % (32-36); MEAN CORPUSCULAR VOLUME 87 fL (79.0-98.0); MONOCYTES # (AUTO) 1.1 K/uL (0.0-1.0); MONOCYTES % (AUTO) 9.5 % (1.7-9.3); NEUTROPHILS # (AUTO) 8.5 K/uL (1.8-7.7); NEUTROPHILS % (AUTO) 76.1 % (40.0-70.0); PLATELET COUNT (AUTO) 364 K/uL (130-430); RED BLOOD CELL COUNT(AUTO) 2.83 MIL/uL (4.2-6.2); RED CELL DISTRIBUTION WIDTH 15.8 % (9.0-15.0); WHITE BLOOD COUNT (AUTO) 11.1 K/uL (4.8-10.8)
--- NOTE | 2020-09-21 07:28 | NUR ---
CLOSING NOTE PT LAYING IN BED. NO SIGNS OR SYMPTOMS OF DISTRESS NOTED. CALL LIGHT WITHIN REACH. SBAR REPORT GIVEN TO OUMOU GARSIA. CARE ENDORSED.
[2020-09-21] MEDS: METOPROLOL TARTRATE 25 MG TABLET PO SCH ×2 (09:00→20:57)
[2020-09-21] MEDS: CYANOCOBALAMIN 1000 mCg TABLET PO SCH (09:00)
[2020-09-21] MEDS: BISACODYL 5 MG TABLET.DR (DULCOLAX) PO SCH ×2 (09:00→09:58)
[2020-09-21 09:21] LABS: ALANINE AMINOTRANSFERASE 8 U/L (12-78); ALBUMIN 1.6 g/dL (3.4-4.8); ANION GAP 9 (5-15); ASPARTATE AMINOTRANSFERASE 22 U/L (10-37); CALCIUM 7.3 mg/dL (8.4-11.0); CHLORIDE 106 mmol/L (98-107); CREATININE 0.79 mg/dL (0.55-1.30); GLUCOSE 104 mg/dL (70-99); POTASSIUM 3.5 mmol/L (3.5-5.1); SODIUM SERUM 135 mmol/L (136-145); TOTAL BILIRUBIN 0.2 mg/dL (0.0-1.0); UREA NITROGEN, BLOOD 8 mg/dL (8-21)
--- NOTE | 2020-09-21 09:30 | NUR ---
at bedside Dr. Martin at bedside.
[2020-09-21] MEDS: MIDODRINE HCL 5 MG TABLET (PROAMATINE) PO SCH ×3 (09:57→20:59)
[2020-09-21] MEDS: NEPHROVITE, (FOLIC ACID/VITAMIN B COMP W-C 1 TAB) PO SCH (09:58)
[2020-09-21] MEDS: PANTOPRAZOLE SODIUM 40 MG TAB PO SCH (09:58)
[2020-09-21] MEDS: ASCORBIC ACID 500 MG TABLET PO SCH (09:58)
[2020-09-21] MEDS: DOCUSATE SODIUM 100 MG CAPSULE PO SCH ×2 (09:58→20:57)
[2020-09-21] MEDS: MUPIROCIN 2% TOPICAL OINTMENT 22 GM NS SCH ×2 (10:19→20:57)
--- NOTE | 2020-09-21 10:44 | NUR ---
Final Inspector Shuttle: follow up TAKER OFF DRYING KILN called HCP Gabi, to follow up on the Pt. and Hospice with Deanne. Gabi stated Dr. Martin stated pt. has not signed. TAKER OFF DRYING KILN shared the weekend notes with Gabi who stated she will follow up with the family, pts. daughter. TAKER OFF DRYING KILN will remain available as needed.
[2020-09-21] MEDS: levoFLOXacin 250 MG TABLET PO SCH (10:47)
[2020-09-21] MEDS: ALBUMIN HUMAN 25% 50 ML IV SCH ×3 (10:56→21:04)
--- NOTE | 2020-09-21 13:21 | NUR ---
Nutrition F/U Admitting Diagnosis: Ovarian CA, ascites Medical History Comment: PMH: ovarian CA, ascites, COPD per physician notes SARS-CoV-2 Ag (Rapid) Negative 09/17 09/21 MD notes: Chronic Atrial fibrillation w/ moderate RVR, Stage IV Ovarian Cancer w/ metastasis in the peritoneum and pleura, Cirrhosis of the liver, bed bound status. Subjective Information Pt has been transferred to ICU over the weekend because of low blood pressure per MD notes. Pt is being enrolled into hospice program and pt has just signed the DNR consent form. Per RN, pt is not eating well and will be discharged w/ hospice care. Pt is a good candidate for TPN d/t increased risk for malnutrition and d/t chronic disease. RD rec to follow hospice feeding protocols. Current Diet Order/Nutrition Support: Full liquid Vegetarian-Lactoovo Pertinent Medications: Piperacillin/tazobactam, Protonix, Nephrovite, Colacem VIT B12. Pertinent Labs 09/21 Na 135L, K 3.5WNL, BG 104H, BUN 8WNL, CRE 0.79WNL Skin Integrity Comment: Sarbjit scale: 15; no PIs noted per EMR Current % PO Negligible (19% average of 4 meals) Estimated Energy Expenditure (kcals/day) 9616-2357 kcal/day (30-35 kcal/kg Adj IBW for CA) Estimated Protein Required (g/day) 59-74 gm/day (1.2-1.5 gm/kg Adj IBW for CA) Estimated Fluid Required (l/day) Per physician d/t ascites Problem/Etiology/Signs/Symptoms Inadequate nutrition related to possible lack of appetite as evidenced by negligible PO intake records. (*ongoing) Expected Outcomes/Goals - Monitor diet Rx advancement, appetite and PO intakes w/ goal of pt meeting at least 50% of estimated nutritional needs, labs trending WNL, normal GI function, and skin integrity/wt maintenance Dietitian Recommendations * Continue full liquid, vegetarian diet (ONS Ensure Enlive TID comes standard w/ current diet; provides 1050 kcal/day, 60 gm protein/day) * Encourage increase PO intakes. Follow Up Low Risk: F/U in 7 days Addendum: 09/22/20 at [address] Nutrition Consult received for Intertrigo Gluteal Cleft, Jerome Schaffer 09/22/20 0689. Pt was re-assessed 09/21/20. XAVIER to continue to follow as per nutrition care standards.
--- NOTE | 2020-09-21 13:33 | NUR ---
Dietitian Recommendations * Continue full liquid, vegetarian diet (ONS Ensure Enlive TID comes standard w/ current diet; provides 1050 kcal/day, 60 gm protein/day) * Encourage increase PO intakes. Please see Nutrition F/U note for details VERNON, RD
--- NOTE | 2020-09-21 15:09 | NUR ---
at bedside Dr. Vance at bedside. No new orders received.
--- NOTE | 2020-09-21 16:00 | NUR ---
Nursing rounds Pt seen lying in bed resting, NAD on 3L/ NC. Repositioned patient, provided oral care. Pt with call light in reach, bed in lowest locked position.
--- NOTE | 2020-09-21 19:30 | NUR ---
Opening Note Received report from AM nurse using SBAR approach.
[2020-09-22] VITALS (24 sets, daily range): BP systolic 85–138
--- NOTE | 2020-09-22 02:00 | NUR ---
CHG denied Patient denied CHG and new linens/gown and wanted to rest.
[2020-09-22] MEDS: IPRATROPIUM BROM 0.5 MG/2.5 ML VIAL.NEB (ATROVENT) INH SCH ×5 (03:00→20:17)
[2020-09-22] MEDS: ALBUTEROL SULFATE 0.083% 2.5 MG/3 ML VIAL.NEB INH SCH ×5 (03:00→20:17)
--- NOTE | 2020-09-22 03:45 | NUR ---
High Heart Rate Patient's heart rate is in the hgih 120's-130's. Assessed patient and asked if she was in pain or have any distress. Patient stated no, she feels okay. Will continue to monitor.
--- NOTE | 2020-09-22 04:00 | NUR ---
PAGED Paged Dr. Herring regarding patient's Heart Rate. New orders received.
[2020-09-22] MEDS: PIPERACILLIN/TAZO 2.25G/DEX-IS 50 ML IV SCH ×4 (04:01→21:35)
--- NOTE | 2020-09-22 04:12 | NUR ---
PAGED FOR ORDERS DIALED: [phone] SPOKE TO:
[2020-09-22] MEDS ORDERED: METOPROLOL TARTRATE 25 MG TABLET PO ONE (04:30)
[2020-09-22] MEDS ORDERED: METOPROLOL TARTRATE 25 MG TABLET ONE (04:42)
[2020-09-22] MEDS: NOREPINEPHRINE BITARTRATE 4 MG in D5W 246 ML IV PRN (04:59)
--- NOTE | 2020-09-22 07:00 | NUR ---
MD Dr. Vance at bedside. No new orders
--- NOTE | 2020-09-22 07:09 | NUR ---
Closing Note Endorsed report to AM nurse using SBAR approach.
--- NOTE | 2020-09-22 08:00 | NUR ---
AM ASSESSMENT. PT AWAKE, AFEBRILE, BROUGHT IN HER BREAKFAST TRAY, NEEDS ASSESSED AND ATTENDED, HELPED PT UP IN BED, ECCHYMOSIS TO RIGHT LOWER ABDOMEN, ABDOMEN DISTENDED, EDEMA TO BOTH LOWER EXTREMITIES, WILL CONTINUE TO MONITOR.
--- NOTE | 2020-09-22 08:30 | NUR ---
HYGIENE. PT INCONTINENT OF BOWEL, SOFT BOWEL MOVEMENT, BROWN COLOR, PERINEAL CARE DONE, WOUND TO SACRAL AREA, DARK RED, NO BLEEDING, WOUND GENTLY WASHED WITH SALINE, MOISTURE BARRIER CREAM APPLIED, HELPED PT TURNED TO HER SIDE.
[2020-09-22 10:15] LABS: BASOPHILS # (AUTO) 0.1 K/uL (0.0-0.2); BASOPHILS % (AUTO) 0.6 % (0.0-2.0); EOSINOPHILS % (AUTO) 0.2 % (0.0-4.0); HEMATOCRIT 24.3 % (36-48); HEMOGLOBIN 7.7 g/dL (12.0-16.0); LYMPHOCYTES # (AUTO) 1.2 K/uL (1.0-5.5); LYMPHOCYTES % (AUTO) 12.1 % (20.5-51.5); MEAN CORPUSCULAR HEMOGLOBIN 27 pg (27-31); MEAN CORPUSCULAR HGB CONC 32 % (32-36); MEAN CORPUSCULAR VOLUME 86 fL (79.0-98.0); MONOCYTES # (AUTO) 0.8 K/uL (0.0-1.0); MONOCYTES % (AUTO) 7.9 % (1.7-9.3); NEUTROPHILS # (AUTO) 7.7 K/uL (1.8-7.7); NEUTROPHILS % (AUTO) 79.2 % (40.0-70.0); PLATELET COUNT (AUTO) 302 K/uL (130-430); RED BLOOD CELL COUNT(AUTO) 2.82 MIL/uL (4.2-6.2); RED CELL DISTRIBUTION WIDTH 15.9 % (9.0-15.0); WHITE BLOOD COUNT (AUTO) 9.8 K/uL (4.8-10.8)
[2020-09-22 10:23] LABS: ANION GAP 7 (5-15); CALCIUM 7.6 mg/dL (8.4-11.0); CHLORIDE 104 mmol/L (98-107); CREATININE 0.74 mg/dL (0.55-1.30); GLUCOSE 103 mg/dL (70-99); SODIUM SERUM 134 mmol/L (136-145); UREA NITROGEN, BLOOD 6 mg/dL (8-21)
[2020-09-22 10:30] LABS: ALANINE AMINOTRANSFERASE 8 U/L (12-78); ALBUMIN 1.9 g/dL (3.4-4.8); ASPARTATE AMINOTRANSFERASE 31 U/L (10-37); TOTAL BILIRUBIN 0.3 mg/dL (0.0-1.0)
--- NOTE | 2020-09-22 10:52 | NUR ---
Pediatric Physical Therapy Assistant/Hospice Received a call from Alesha with [facility], p [phone] f [phone]. She does not have the consents signed by the family yet. The daughter who was to have patient in her home does not think she will be able to manage that level of care. Possibly the plan now is for patient to go back to [facility] with [facility]. Financial arrangements need to be finalized with [facility]. Alesha requested patient's records be faxed. Done. Will remain available. Addendum: 09/22/20 at 1159 by Claudette Burnham LCSW Janell with [facility] phoned, . She was working with patient's family on hospice prior to patient's admission to the hospital. I phoned both of patient's daughters. Reyna, , is the decision maker. Reyna stated they want to work with [facility]. She was in the process of dropping off the paperwork when I called. [facility] will need to find SNF placement, possibly [facility]. Informed Janell with [facility].
--- NOTE | 2020-09-22 11:00 | NUR ---
Call out to for transfer orders.
[2020-09-22] MEDS: NEPHROVITE, (FOLIC ACID/VITAMIN B COMP W-C 1 TAB) PO SCH (11:15)
[2020-09-22] MEDS: MUPIROCIN 2% TOPICAL OINTMENT 22 GM NS SCH ×2 (11:15→21:34)
[2020-09-22] MEDS: PANTOPRAZOLE SODIUM 40 MG TAB PO SCH (11:16)
[2020-09-22] MEDS: METOPROLOL TARTRATE 25 MG TABLET PO SCH ×2 (11:16→21:35)
[2020-09-22] MEDS: ASCORBIC ACID 500 MG TABLET PO SCH (11:16)
[2020-09-22] MEDS: MIDODRINE HCL 5 MG TABLET (PROAMATINE) PO SCH ×3 (11:17→21:34)
[2020-09-22] MEDS: CYANOCOBALAMIN 1000 mCg TABLET PO SCH (11:18)
[2020-09-22] MEDS: DOCUSATE SODIUM 100 MG CAPSULE PO SCH ×2 (11:22→21:34)
[2020-09-22] MEDS: BISACODYL 5 MG TABLET.DR (DULCOLAX) PO SCH (11:22)
--- NOTE | 2020-09-22 12:02 | NUR ---
Second page out to Dr. Martin regarding transfer orders.
[2020-09-22] MEDS: D5/0.45 NS 1,000 ML IV SCH (12:51)
--- NOTE | 2020-09-22 13:30 | NUR ---
WOUND CONSULT. TURNED PT TO HER SIDE, [employer] AT BEDSIDE, WOUND ASSESSED AND CLEANED, MOISTURE BARRIER CREAM APPLIED AND COVERED WITH FOAM DRESSING.
--- NOTE | 2020-09-22 13:30 | NUR ---
WOUND EVALUATION: Late note for 1330 secondary to patient care. Wound Consult received from Dr. Martin. Thank you, Dr. Martin, for the consult. Patient received in a Minerva Bed with an Isoflex MITCH mattress (low air loss therapy was initiated), awake, alert, and oriented. Patient is unable to turn independently. Sarbjit Score is a 14. Past Medical History: Malignant Ascites, Ovarian Cancer (non-operable), Bowel Resection 1 year ago. Recent Labs: WBC 9.8, RBC 2.82, hemoglobin 7.7, hematocrit 24.3, sodium 134, BUN 6, creatinine 0.74, glucose 103, calcium 7.6, albumin 1.9, PTT 43.2. Microbiology: Blood culture results x2 negative. Urine culture results in progress. MRSA screen results positive. Intrinsic factors that delay wound healing: Severe Hypoalbuminemia. Extrinsic factors that delay wound healing: Decreased mobility. Wound Assessment: 1. Gluteal Cleft: Intertrigo. Wound bed has 100% dark red tissue. No odor, no drainage. Nisreen-wound intact. Measures 0.7 cm x 0.9 cm. Recommend: Cleanse wound with normal saline. Apply Calmoseptine cream to wound and nisreen-wound. Cover with Sacral foam dressing. Perform wound care daily, and as needed for dressing soiling or dislodgement. 2. Right Lateral Hip: Purple ecchymosis, present on admission. Recommend: No dressing needed. Continue to monitor site every shift. Also recommend: Reposition patient side to side only every hour with one pillow underneath trunk and 1 pillow underneath pelvis bilaterally (reposition patient by placing an extra pillow underneath the two pillows on one side q 1hr, then the other side q 1hr). Off-load pressure areas with pillows for pressure re-distribution. Offload, elevate and float bilateral heels with one pillow lengthwise Under each extremity at all times. Perform skin care and monitor skin integrity Q shift. Use Calmoseptine cream on buttocks and other moisture susceptible areas QID and as needed for soiling. Maintain patient on a low air-loss mattress.
--- NOTE | 2020-09-22 14:00 | NUR ---
Received report on patient to assume care of patient. ST on monitor. SBP 90's with levophed at 0.7 mcgs. Pt sitting up in bed. Pt is SOB rate 30's witha congested cough. Lungs with crackles bilaterally. Good urine output in saldana bag. IVF infusing at 50 cc/hr. 02 3L NC in use. Side rails up and call sosa in reach.
--- NOTE | 2020-09-22 15:41 | NUR ---
Overnight Cashier/Hospice Received a call from Alesha with [facility], . [facility] no longer has a bed available. Alesha asked me to call [facility], . I called and spoke with Rick and Nathan. Patient was not on a bed hold, as she was skilled. The family did not provide a check for a bed hold. The family brought a check today, but now there is no bed. Daughter, Reyna called, . She would like patient to be evaluated by [facility] hospice. If [facility] cannot accept patient, then Reyna stated she would take patient to her home under [facility]. Phoned February at [facility], p [phone] f [phone]. They have beds available. Faxed patient information. Patient would need a Covid test within 5 days. A rapid would need to be done if patient does not discharge tonight. Notified Alesha with [facility] of above. Notified Deanne GARSIA in ICU of above. [facility] will follow up with ICU tonight with any questions and possible discharge to their hospice. Overnight Cashier will follow up tomorrow. Addendum: 09/22/20 at 1555 by Claudette Burnham LCSW Notified Gabi STREETER CM of above,
[2020-09-22] MEDS: MENTHOL/ZINC OXIDE 113 GM OINT. TP SCH ×2 (17:00→21:35)
--- NOTE | 2020-09-22 18:30 | NUR ---
Pt sitting up high in bed and drinking soup for dinner. Poor apeitite. HR remains ST 120. No AFIB noted. Levophed remains at 0.7mcg. Family considering [facility]celling [facility] and going with vitas to the sisters home after all. Family cancelled this option yesterday indicating they couldn't get the room ready. Social Service aware and helping family with decision.
--- NOTE | 2020-09-22 19:15 | NUR ---
OPENING NOTE SBAR REPORT RECEIVED FROM HAFSA GARSIA. CARE ASSUMED. PT LAYING IN BED. PT ANO X4. PT ON 3L NC. O2 SATURATION 99%. PT HAS 20G IV TO LEFT FOREARM RUNNING D5/ 1/2NS @ 100 ML/HR AND LEVOPHED @ 0.07 MCG/KG/MIN. RADIAL AND PEDAL PULSES PRESENT. EDEMA NOTED TO BILATERAL LOWER EXTREMITIES. ABDOMEN DISTENDED AND FIRM. BOWEL SOUNDS ACTIVE. PT HAS MEJÍA CATHETER FLOWING TO GRAVITY. URINE YELLOW AND CLEAR. BLANCHABLE SACRAL REDNESS PRESENT AND RIGHT HIP ECCHYMOSIS PRESENT. BED LOCKED IN LOWEST POSITION. SAFETY PRECAUTIONS IN PLACE. CALL LIGHT WITHIN REACH. WILL CONTINUE TO MONITOR.
--- NOTE | 2020-09-22 19:40 | NUR ---
Report given to oncoming shift.
[2020-09-23] VITALS (15 sets, daily range): BP systolic 88–111
[2020-09-23] MEDS: PIPERACILLIN/TAZO 2.25G/DEX-IS 50 ML IV SCH ×2 (04:36→11:26)
[2020-09-23 05:36] LABS: BASOPHILS % (AUTO) 0.3 % (0.0-2.0); EOSINOPHILS % (AUTO) 0.2 % (0.0-4.0); HEMATOCRIT 24.2 % (36-48); HEMOGLOBIN 7.5 g/dL (12.0-16.0); LYMPHOCYTES # (AUTO) 1.8 K/uL (1.0-5.5); LYMPHOCYTES % (AUTO) 15.5 % (20.5-51.5); MEAN CORPUSCULAR HEMOGLOBIN 27 pg (27-31); MEAN CORPUSCULAR HGB CONC 31 % (32-36); MEAN CORPUSCULAR VOLUME 86 fL (79.0-98.0); MONOCYTES % (AUTO) 9.2 % (1.7-9.3); NEUTROPHILS # (AUTO) 8.5 K/uL (1.8-7.7); NEUTROPHILS % (AUTO) 74.8 % (40.0-70.0); PLATELET COUNT (AUTO) 327 K/uL (130-430); RED BLOOD CELL COUNT(AUTO) 2.83 MIL/uL (4.2-6.2); RED CELL DISTRIBUTION WIDTH 15.8 % (9.0-15.0); WHITE BLOOD COUNT (AUTO) 11.4 K/uL (4.8-10.8)
[2020-09-23 05:54] LABS: ALANINE AMINOTRANSFERASE 8 U/L (12-78); ALBUMIN 1.8 g/dL (3.4-4.8); ANION GAP 7 (5-15); ASPARTATE AMINOTRANSFERASE 38 U/L (10-37); CALCIUM 7.8 mg/dL (8.4-11.0); CHLORIDE 104 mmol/L (98-107); CREATININE 0.65 mg/dL (0.55-1.30); GLUCOSE 91 mg/dL (70-99); POTASSIUM 3.7 mmol/L (3.5-5.1); SODIUM SERUM 134 mmol/L (136-145); TOTAL BILIRUBIN 0.3 mg/dL (0.0-1.0); UREA NITROGEN, BLOOD 6 mg/dL (8-21)
[2020-09-23] MEDS: NOREPINEPHRINE BITARTRATE 4 MG in D5W 246 ML IV PRN (07:14)
--- NOTE | 2020-09-23 07:32 | NUR ---
CLOSING NOTE PT LAYING IN BED. NO SIGNS AND SYMPTOMS OF DISTRESS NOTED. SBAR REPORT GIVEN TO OUMOU GARSIA. CARE ENDORSED.
--- NOTE | 2020-09-23 07:33 | NUR ---
Opening Notes Pt received from night RN using SBAR. Pt resting in bed, easily awaken to verbal stimuli. No complaints of pain or distress at this time.
[2020-09-23] MEDS: IPRATROPIUM BROM 0.5 MG/2.5 ML VIAL.NEB (ATROVENT) INH SCH ×3 (07:54→15:29)
[2020-09-23] MEDS: ALBUTEROL SULFATE 0.083% 2.5 MG/3 ML VIAL.NEB INH SCH ×3 (07:54→15:28)
--- NOTE | 2020-09-23 08:08 | NUR ---
Breakfast Pt assisted with breakfast tray, consumed 50% of tray.
[2020-09-23] MEDS ORDERED: ALBUMIN HUMAN 25% 100 ML IV ONE (09:00)
[2020-09-23] MEDS: DOCUSATE SODIUM 100 MG CAPSULE PO SCH (09:00)
[2020-09-23] MEDS: METOPROLOL TARTRATE 25 MG TABLET PO SCH (09:00)
[2020-09-23] MEDS: CYANOCOBALAMIN 1000 mCg TABLET PO SCH (09:00)
[2020-09-23] MEDS: BISACODYL 5 MG TABLET.DR (DULCOLAX) PO SCH (09:00)
[2020-09-23] MEDS: NEPHROVITE, (FOLIC ACID/VITAMIN B COMP W-C 1 TAB) PO SCH (09:19)
[2020-09-23] MEDS: MUPIROCIN 2% TOPICAL OINTMENT 22 GM NS SCH (09:19)
[2020-09-23] MEDS: ASCORBIC ACID 500 MG TABLET PO SCH (09:19)
[2020-09-23] MEDS: PANTOPRAZOLE SODIUM 40 MG TAB PO SCH (09:19)
[2020-09-23] MEDS: MIDODRINE HCL 5 MG TABLET (PROAMATINE) PO SCH (09:20)
[2020-09-23] MEDS: MENTHOL/ZINC OXIDE 113 GM OINT. TP SCH ×2 (09:21→14:00)
--- NOTE | 2020-09-23 10:28 | NUR ---
SS/Hospice Left voicemail for patient's daughter, Reyna, 9am. Received a call from Alesha with [facility], . Patient's daughters have decided to have patient go to daughter, Oksana's, home on [address]. [facility] RN is coming to make arrangements. She will notify Gabi STREETER CM. Phoned [facility], . They spoke with Reyna last night and she said that they were taking patient home. Notified front office associate and ICU. Will remain available.
[2020-09-23] MEDS: D5/0.45 NS 1,000 ML IV SCH (11:27)
--- NOTE | 2020-09-23 12:10 | NUR ---
Lunch Pt assisted with lunch tray, consumed 50%.
[2020-09-23] MEDS ORDERED: MIDODRINE HCL 5 MG TABLET (PROAMATINE) PO SCH (13:00)
--- NOTE | 2020-09-23 14:45 | NUR ---
Transfer Gown Pt changed into pink transfer gown. D/C saldana and Left FA IV, pressure applied to site no bleeding from site.
--- NOTE | 2020-09-23 14:55 | NUR ---
Report Report provided to [facility] transport, all questions answered at this time.
== END 2020-09-23 15:10 | disposition hospice, home (50) | DRG 871 ==
LOC: SED 13:11 → STU 16:18 → SIC 09-20 05:47
PROVIDERS: ADMIT Internal Medicine Hospice and Palliative Medicine; ATTEND Internal Medicine Hospice and Palliative Medicine
PROC: 0W9G3ZZ Drainage of Peritoneal Cavity, Percutaneous Approach (ICD-10-PCS; principal; 2020-09-19)
DX: A41.9 Sepsis, unspecified organism (principal); E43 Unspecified severe protein-calorie malnutrition; J90 Pleural effusion, not elsewhere classified; R18.0 Malignant ascites; C56.9 Malignant neoplasm of unspecified ovary; C78.6 Secondary malignant neoplasm of retroperitoneum and peritoneum; N39.0 Urinary tract infection, site not specified; C18.9 Malignant neoplasm of colon, unspecified; I48.20 Chronic atrial fibrillation, unspecified; Z66 Do not resuscitate; Z51.5 Encounter for palliative care; D63.8 Anemia in other chronic diseases classified elsewhere; E78.5 Hyperlipidemia, unspecified; I10 Essential (primary) hypertension; J44.9 Chronic obstructive pulmonary disease, unspecified; K74.60 Unspecified cirrhosis of liver; I95.9 Hypotension, unspecified; Z68.26 Body mass index [BMI] 26.0-26.9, adult; Z74.01 Bed confinement status; Z85.43 Personal history of malignant neoplasm of ovary; Z87.891 Personal history of nicotine dependence; Z90.49 Acquired absence of other specified parts of digestive tract; Z90.710 Acquired absence of both cervix and uterus; Z88.2 Allergy status to sulfonamides; Z88.1 Allergy status to other antibiotic agents
CPT/HCPCS: 36415; 49083; 71045; 80053; 80061; 81000-TC; 83605; 83690-TC; 83880; 84443-TC; 84484; 85025; 85610-TC; 85730-TC; 87040-TC; 87081; 87086; 93005; 93306; 94640; 94760; 99285; C1729; G0378; J2543; J7030; J7040; J7050; J7060; J7613; P9046